=== PATIENT | male | born 1985 | race Caucasian/White ===

== ENCOUNTER 2018-04-23 09:24 | Emergency (ER) | payer SELFPAY, OTHER ==
[2018-04-23] MEDS: KETOROLAC 60 MG/2 ML VIAL (J1885) IM (10:18)
== END 2018-04-23 11:11 | disposition home or self-care (01) ==
LOC: M ED 09:24
DX: F10.10 Alcohol abuse, uncomplicated (principal); M25.511 Pain in right shoulder; R07.89 Other chest pain; Y04.8XXA Assault by other bodily force, initial encounter; Y92.9 Unspecified place or not applicable; Y93.9 Activity, unspecified; Y99.9 Unspecified external cause status; Z72.0 Tobacco use
CPT/HCPCS: J1885

== ENCOUNTER 2018-04-24 09:44 | Emergency (ER) | payer SELFPAY ==
[2018-04-24] MEDS: KETOROLAC TROMETHAMINE 10 MG TAB PO (10:15)
== END 2018-04-24 12:07 | disposition home or self-care (01) ==
LOC: M ED 09:44
DX: R07.89 Other chest pain (principal); F17.200 Nicotine dependence, unspecified, uncomplicated
CPT/HCPCS: 71101

== ENCOUNTER 2019-03-05 02:21 | Emergency (ER) | payer SELFPAY ==
[~2019-03-05] VITALS: Ht 170.2 cm; Wt 92.4 kg
[~2019-03-05 02:21] MED LIST: CLEO300C OR; IBUP80TA PO; KETO10TAB PO; PERC5TAB12 PO; TYLENOL #3 OR
[2019-03-05 02:23] VITALS: BP 128/74
== END 2019-03-05 03:10 | disposition home or self-care (01) ==
LOC: M ED 02:21
DX: F10.220 Alcohol dependence with intoxication, uncomplicated (principal); F17.210 Nicotine dependence, cigarettes, uncomplicated